=== PATIENT | male | born 1980 | race Caucasian/White ===

== ENCOUNTER 2023-04-23 21:52 | Emergency (ER) | payer BC ==
--- OUTSIDE RECORDS SUMMARY | 2023-04-23 21:55 | XMS REPORT | Continuity of Care Document ---
:1980 Author Organization [facility] t Address [address] [facility] [address] [place] [address] Care Team Providers Name Role Phone Asked, No Pcp Primary Care Physician Unavailable Taylor VASQUES, Jane Ramirez Attending Clinician [phone] ANGELA LAWRENCE Attending Clinician Unavailable PRAVEEN DARLING Attending Clinician Unavailable Payers Payer Name Policy Type Policy Number Effective Date Expiration Date S ource Problems This patient has no known problems. Allergies, Adverse Reactions, Alerts Allergy Allergy Status Severity Reaction(s) Onset Inactive Treating Comm ents Source Name Type Date Date Clinician NO KNOWN Allergy Active [facility] Social History Social Habit Start Date Stop Date Quantity Comments Source Gender identity [facility] History of tobacco Chews [facility] Tobacco use and 2023-04-14 2023-04-14 User of smokeless [facility] exposure 00:00:00 00:00:00 tobacco Hospital Alcohol intake 2023-04-14 2023-04-14 Current drinker of [facility] 00:00:00 00:00:00 alcohol (finding) Hospita l History of Social 2023-04-14 2023-04-[address] function 00:00:00 00:00:00 Hospital Alcohol Comment 2017-02-18 2017-02-18 occasionaly [facility] 00[facility] Sex Assigned At [birth year] [facility] Smoking Status Start Date Stop Date Source Never smoked tobacco [facility] Medications Ordered Filled Start Stop Current Ordering Indication Dosage Frequency Signature Comments Components Source Medication Medication Date Date Medication? Clinician (SIG) Name Name PINEDA Yes 300mg Q7D Inject 300 [facility] CYPIONATE 6-[address] IM 09:46: the [facility]osp[facility] 20 shoulder, l thigh, or buttocks once a week. topiramate Yes [id number] Take 25 mg [facility] (Topamax) 6-[address] 25 MG 00:00: QHS x 1 Hospita tablet 00 week, then l take 25 mg 1 tablet BID x 1 week, then take 25 mg 2 tablets BID rimegepant 2023- Yes [id number] 75mg Q2D Take 1 [facility] (Nurtec 6-15 06-15 tablet (75 st ODT) 75 mg 00:00: 04:59 mg total) [facility]sp[facility] tablet,disi 00 :00 by mouth l ntegrating every other day. Vital Signs Vital Name Observation Time Observation Value Comments Source Systolic blood 2023-04-14 14:20:00 139 mm[Hg] [facility] pressure Diastolic blood 2023-04-14 14:20:00 86 mm[Hg] [facility] pressure Heart rate 2023-04-14 14:20:00 75 /min [facility] Body height 2023-04-14 14:20:00 185.4 cm [facility] Procedures This patient has no known procedures. Plan of Care Planned Activity Planned Date Details Comments Source Future Scheduled 2023-07-[address] [facility] Test 00:00:00 (Season Ended) [code [facility] Center = Influenza Vaccine (Season Ended)] Future Scheduled 2023-04-22 COVID-[address] [facility] Test 09:01:50 (#1) [code = COVID-19 VACCINE (#1)] Future Scheduled 2023-04-22 [facility] 09:01:50 screening (procedure) [code = 949430892] Future Scheduled 2023-04-22 INFLUENZA VACCINE [facility] 09:01:50 [code = INFLUENZA VACCINE] Future Scheduled 2022-10-[address] [facility] Test 00:00:00 (12+) [code = [facility] DEPRESSION SCREENING (12+)] Future Scheduled [address] [facility] 00:00:00 (procedure) [code = [facility] [id number]] Future Scheduled 1999 DTAP/TDAP/TD [facility] Test 00:00:00 VACCINES (1 - Tdap) [facility] [code = DTAP/TDAP/TD VACCINES (1 - Tdap)] Future Scheduled [address] [facility] Test 00:00:00 SCREENING [code = Medical nt HEPATITIS C SCREENING] Future Scheduled [address] [facility] 00:00:00 [facility] (12+) [code = Tobacco Cessation Counseling and Screening (12+)] Future Scheduled 1981-01-08 COVID-[address] [facility] Test 00:00:00 (#1) [code = [facility] COVID-19 VACCINE (#1)] Encounters Start End Encounter Admission Attending Care Care Encounter Source Date/Time Date/Time Type Type Clinicians Facility Department ID 2023-04-14 2023-04-14 Office Spheeris, [id number] [facility] 09:15:00 10:05:32 Visit Jane [id number] [id number] Hospit [id number] l .8 2023-04-14 2023-04-14 Outpatient [facility] [id number] [place] 00:00:00 00:00:[address] 2022-03-17 2022-03-17 Outpatient EKERUO, [facility] [id number] [place] 00:00:00 00:00:00 ANGELA [address]ar[address] [facility] [address] 2021-02-16 2021-02-16 Emergency ER [facility] Emergency [id number] [facility] 09:13:00 09:13:00 Results Test Description Test Time Test Comments Results Result Sourc e Comments RAD, CHEST, 2 2021-02-16 Reason for VIEWS 10:08:00 exam:->[facility] 1980 Sex: M *FINAL REPORT INDICATION: CHEST PAIN COMPARISON: None TECHNIQUE: Frontal and lateral views of the chest. FINDINGS: Lungs and pleura: Clear lungs. No effusion.Heart and mediastinum: Normal heart size. Unremarkable mediastinal contours.Osseous structures: No acute abnormality.Addition al findings: None. IMPRESSION: No acute intrathoracic abnormality. Signed: Magalis Valente Verified Date/Time: 02/16/2021 10:08:00 Reading Location: [facility] Radiology Reading Room D TROPONIN I 2021-02-16 10:07:00 Test Item Value Reference Range Interpretation Comme nts RAPID TROPONIN I (BEAKER) (test code = 1483) < ng/mL <0.05 \Triage Meter [id number]\ [id number] 09:54:00 Test Item Value Reference Range Interpretation Comments D-DIMER QUANTITATIVE (BEAKER) < MG/L FEU <0.50 (test code = 671) REGARDING D-DIMER RESULTS: Results of this D-Dimer test should always be interpreted in conjunction with the patient's medical history, clinical presentation and other findings. DVT clinical diagnosis should not be based on the results of INNOVANCE D-Dimer alone.BASIC METABOLIC [id number] 09:54:00 Test Item Value Reference Range Interpretation Comments SODIUM (BEAKER) (test 136 meq/L 135-148 code = 381) POTASSIUM (BEAKER) 3.8 meq/L 3.6-5.5 (test code = 379) CHLORIDE (BEAKER) 100 meq/L 98-106 (test code = 382) CO2 (BEAKER) (test 27 meq/L 24-32 code = 355) BLOOD UREA NITROGEN 19 mg/dL 10-26 (BEAKER) (test code = 354) CREATININE (BEAKER) 1.04 mg/dL 0.50-1.20 (test code = 358) GLUCOSE RANDOM 107 mg/dL 70-110 (BEAKER) (test code = 652) CALCIUM (BEAKER) 9.6 mg/dL 8.5-10.5 (test code = 697) EGFR (BEAKER) (test INSUFFIC IENT CLINICAL code = 1092) DATA TO CALCULA TE ESTIMATED GFR. CBC W/PLT COUNT & AUTO [id number] 09:42:00 Test Item Value Reference Range Interpretation Comments WHITE BLOOD CELL COUNT (BEAKER) 4.1 K/ L 4.0-10.0 (test code = 775) RED BLOOD CELL COUNT (BEAKER) 5.02 M/ L 4.20-5.80 (test code = 761) HEMOGLOBIN (BEAKER) (test code = 15.8 GM/DL 13.0-16.8 410) HEMATOCRIT (BEAKER) (test code = 46.3 % 40.0-50.0 411) MEAN CORPUSCULAR VOLUME (BEAKER) 92.2 fL 82.0-98.0 (test code = 753) MEAN CORPUSCULAR HEMOGLOBIN 31.5 pg 27.0-33.0 (BEAKER) (test code = 751) MEAN CORPUSCULAR HEMOGLOBIN CONC 34.2 GM/DL 32.0-36.0 (BEAKER) (test code = 752) RED CELL DISTRIBUTION WIDTH 12.4 % 10.3-14.2 (BEAKER) (test code = 412) PLATELET COUNT (BEAKER) (test 190 K/CU MM 150-430 code = 756) MEAN PLATELET VOLUME (BEAKER) 8.2 fL 6.5-10.5 (test code = 754) NEUTROPHILS RELATIVE PERCENT 48 % (BEAKER) (test code = 429) LYMPHOCYTES RELATIVE PERCENT 39 % (BEAKER) (test code = 430) MONOCYTES RELATIVE PERCENT 10 % (BEAKER) (test code = 431) EOSINOPHILS RELATIVE PERCENT 2 % (BEAKER) (test code = 432) BASOPHILS RELATIVE PERCENT 1 % (BEAKER) (test code = 437) NEUTROPHILS ABSOLUTE COUNT 1.97 K/ L 1.80-8.00 (BEAKER) (test code = 670) LYMPHOCYTES ABSOLUTE COUNT 1.59 K/ L 1.48-4.50 (BEAKER) (test code = 414) MONOCYTES ABSOLUTE COUNT (BEAKER) 0.43 K/ L 0.00-1.30 (test code = 415) EOSINOPHILS ABSOLUTE COUNT 0.08 K/ L 0.00-0.50 (BEAKER) (test code = 416) BASOPHILS ABSOLUTE COUNT (BEAKER) 0.04 K/ L 0.00-0.20 (test code = 417)
[2023-04-23] MEDS ORDERED: HYDROCODONE/APAP 5/325 MG TAB ONE ×2 (22:27→22:54)
[2023-04-23] MEDS ORDERED: MORPHINE 4 MG/ML SYR ONE (23:30)
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
[2023-04-24 00:59] VITALS: TEMP 98.8; O2SAT 99
[2023-04-24 01:01] VITALS: BP 121/79
--- NOTE | 2023-04-25 12:00 | RAD REPORT ---
EXAM DESCRIPTION: CT Right Lower Extremity Without Intravenous Contrast, Knee CLINICAL HISTORY: The patient is 42 years old and is Male; injury/swelling [facility] MAIN TECHNIQUE: Axial computed tomography images of the right knee without intravenous contrast. Sagitt al and coronal reformatted images were created and reviewed. This CT exam was performed using one o r more of the following dose reduction techniques: automated exposure control, adjustment of the mA and/or kV according to patient size, and/or use of iterative reconstruction technique. COMPARISON: No relevant prior studies available. FINDINGS: BONES/JOINTS: Trace joint effusion. No fracture, subluxation, or dislocation. SOFT TISSUES: Right prepatellar hyperdense fluid collection measuring approximately 6.1 x 3.2 x 5.5 cm (transverse by AP by craniocaudal), with surrounding soft tissue edema, suggesting prepatellar bu rsitis complicated by hemorrhage. IMPRESSION: Findings most compatible with hemorrhagic prepatellar bursitis. Electronically signed by: Alec Deshpande MD 04/24/2023 12:05 AM CDT Due to temporary technical issues with the PACS/Fluency reporting system, reports are being signed by the in house radiologist without review as a courtesy to ensure prompt reporting. The interpreting r adiologist is fully responsible for the content of the report.
--- NOTE | 2023-04-25 12:09 | RAD REPORT ---
EXAM DESCRIPTION: XR Right Knee, 3 Views CLINICAL HISTORY: The patient is 42 years old and is Male; PAIN [facility] MAIN TECHNIQUE: Three views of the right knee. COMPARISON: No relevant prior studies available. FINDINGS: BONES/JOINTS: Unremarkable. No joint effusion. No fracture, subluxation, or dislocation. SOFT TISSUES: Prepatellar soft tissue swelling, suggesting prepatellar bursitis. IMPRESSION: Right prepatellar soft tissue swelling, suggesting prepatellar bursitis. Electronically signed by: Alec Deshpande MD 04/23/2023 11:58 PM CDT Due to temporary technical issues with the PACS/Fluency reporting system, reports are being signed by the in house radiologist without review as a courtesy to ensure prompt reporting. The interpreting r adiologist is fully responsible for the content of the report.
== END 2023-04-24 00:43 | disposition home or self-care (01) ==
LOC: ER 21:52
DX: M70.41 Prepatellar bursitis, right knee (principal); M25.461 Effusion, right knee; M25.561 Pain in right knee; W17.89XA Other fall from one level to another, initial encounter
CPT/HCPCS: 73700; 96372; 99284